=== PATIENT | male | born 1965 | race Caucasian/White ===

== ENCOUNTER 2017-06-17 10:18 | Emergency (ER) | payer MEDICAID ==
[2017-06-17 10:38] VITALS: BMI 30.4
[2017-06-17 10:56] VITALS: RESP 18; TEMP 98.7
--- NOTE | 2017-06-17 11:10 | ED PDOC ---
Arrival/HPI - General Chief Complaint: Back Pain Time Seen by Provider: 06/17/17 11:09 Historian: Patient - History of Present Illness Narrative History of Present Illness (Text): 06/17/17 11:10 This 51 yo male who denies pmh, presents to this ED c/o left flank pain x 4 days. Patient stated pain is worsen with movement, and it improves with rest. Patient denies sob, cp, dizziness, fever, n/v/d, rectal bleeding, urinary symptoms, or abnormal gait. Time/Duration: Other (see hpi) Quality: Aching Context: Home Past Medical History - Provider Review Nursing Documentation Reviewed: Yes - Infectious Disease Hx of Infectious Diseases: None - Psychiatric Hx Substance Use: No - Surgical History Hx Orthopedic Surgery: Yes Other/Comment: L FA sx - have plates on arm - Anesthesia Hx Anesthesia: Yes Hx Anesthesia Reactions: No Hx Malignant Hyperthermia: No Family/Social History - Physician Review Nursing Documentation Reviewed: Yes Family/Social History: Other (noncontributory) Smoking Status: Never Smoked Hx Alcohol Use: No Hx Substance Use: No Allergies/Home Meds Allergies/Adverse Reactions: Allergies No Known Allergies Allergy (Verified 06/17/17 10:38) Review of Systems - Review of Systems Constitutional: Normal. absent: Fatigue, Weight Change, Fevers Eyes: Normal ENT: Normal. absent: Sore Throat Respiratory: Normal. absent: SOB, Cough Cardiovascular: Normal. absent: Chest Pain, Palpitations Gastrointestinal: Abdominal Pain (left flank pain). absent: Stool Changes, Constipation, Diarrhea, Nausea, Vomiting Genitourinary Male: Normal. absent: Dysuria, Frequency Musculoskeletal: Normal. absent: Back Pain, Neck Pain Skin: Normal. absent: Rash Neurological: Normal. absent: Headache, Dizziness, Focal Weakness, Gait Changes , Speech Changes Endocrine: Normal Hemo/Lymphatic: Normal Psychiatric: Normal Physical Exam Vital Signs Temp Pulse Resp BP Pulse Ox 06/17/17 10:19 98.7 F 80 18 147/89 100 Temperature: Afebrile Blood Pressure: Normal Pulse: Regular Respiratory Rate: Normal Appearance: Positive for: Well-Appearing, Non-Toxic, Comfortable Pain Distress: None Mental Status: Positive for: Alert and Oriented X 3 - Systems Exam Head: Present: Atraumatic, Normocephalic Pupils: Present: PERRL Extroacular Muscles: Present: EOMI Conjunctiva: Present: Normal Mouth: Present: Moist Mucous Membranes Neck: Present: Normal Range of Motion Respiratory/Chest: Present: Clear to Auscultation, Good Air Exchange. No: Respiratory Distress, Accessory Muscle Use Cardiovascular: Present: Regular Rate and Rhythm, Normal S1, S2. No: Murmurs Abdomen: Present: Normal Bowel Sounds. No: Tenderness, Distention, Peritoneal Signs, Rebound, Guarding Back: Present: Normal Inspection. No: CVA Tenderness Upper Extremity: Present: Normal Inspection, Normal ROM. No: Cyanosis, Edema Lower Extremity: Present: Normal Inspection, Normal ROM. No: Edema Neurological: Present: GCS=15, CN II-XII Intact, Speech Normal Skin: Present: Warm, Dry, Normal Color. No: Rashes Psychiatric: Present: Alert, Oriented x 3, Normal Insight, Normal Concentration Medical Decision Making ED Course and Treatment: 06/17/17 12:30 Re-evaluation. Patient feels better. Discussed results and plan with patient who expresses understanding. All questions answered and there is agreement with the plan to discharge home with instructions. Patient stable for discharge. Return if symptoms persist or worsen. Patient refused blood test Re-evaluation Time: 12:36 Reassessment Condition: Re-examined, Improved - Lab Interpretations Lab Results: Lab Results 06/17/17 11:30: Urine Color Light yellow, Urine Appearance Clear, Urine pH 7.0, Ur Specific [place] 1.020, Urine Protein Negative, Urine Glucose (UA) Negative, Urine Ketones Negative, Urine Blood Negative, Urine Nitrate Negative, Urine Bilirubin Negative, Urine Urobilinogen 0.2, Ur Leukocyte Esterase Negative - RAD Interpretation Narrative RAD Interpretations (Text): 06/17/17 12:31 PROCEDURE: CT Abdomen and Pelvis without intravenous contrast HISTORY: left flank pain COMPARISON: None. TECHNIQUE: CT scan of the abdomen and pelvis was performed without administration of intravenous contrast. Oral contrast was not administered. Coronal and sagittal reformatted images were obtained. Radiation dose: Total exam DLP = 1013.22 MGy-cm. This CT exam was performed using one or more of the following dose reduction techniques: Automated exposure control, adjustment of the mA and/or kV according to patient size, and/or use of iterative reconstruction technique. FINDINGS: LOWER THORAX: The lung bases are clear. LIVER: Normal in size. No ductal dilatation. GALLBLADDER AND BILE DUCTS: There are no calcified gallstones. PANCREAS: Normal in size. No calcifications or ductal dilatation. SPLEEN: Normal in size. ADRENALS: Bilateral adrenal gland calcifications. KIDNEYS AND URETERS: Both kidneys are normal in size without nephrolithiasis or hydronephrosis. There is a 4.2 cm simple cyst in the upper pole of the left kidney. VASCULATURE: No aortic aneurysm. BOWEL: The small bowel loops are normal in caliber. There is mild colonic diverticulosis without CT evidence for acute diverticulitis. There is an apparent 2.5 cm soft tissue density in the cecum. APPENDIX: Normal appendix. PERITONEUM: No free fluid. No free air. LYMPH NODES: No enlarged lymph nodes. BLADDER: Well distended and normal in appearance. REPRODUCTIVE: Unremarkable. BONES: No acute fracture. Within normal limits for the patient's age. OTHER FINDINGS: None. IMPRESSION: 1. No evidence of nephrolithiasis, hydronephrosis or obstructive uropathy. 4.2 cm simple cyst in the upper pole of the left kidney 2. Colonic diverticulosis without CT evidence for acute diverticulitis. 3. Evaluation of the bowel is limited in the absence of oral contrast, allowing for this apparent 2.5 cm soft tissue density in the cecum could represent large polyp however mass cannot be entirely excluded. Please correlate with CT abdomen with oral contrast or colonoscopy on a nonemergent basis. Radiology Orders: 06/17/17 11:11 ABD & PELVIS W/O PO OR IV CONT [CT] Stat Disposition/Present on Arrival - Present on Arrival Any Indicators Present on Arrival: No History of DVT/PE: No History of Uncontrolled Diabetes: No Urinary Catheter: No History of Decub. Ulcer: No History Surgical Site Infection Following: None - Disposition Have Diagnosis and Disposition been Completed?: Yes Diagnosis: Musculoskeletal pain Disposition: HOME/ ROUTINE Disposition Time: 12:37 Patient Plan: Discharge Condition: GOOD Discharge Instructions (ExitCare): Muscle and Bone Pain (DC) Additional Instructions: Call Dr. Velasco private doctor for follow up visit in 1-2 days. Take medication s instructed. Return to emergency if symptoms worsen. Prescriptions: Diazepam [Valium] 2 mg PO DAILY #7 tab Famotidine [Pepcid] 40 mg PO DAILY #10 tablet Naproxen 500 mg PO BID PRN #14 tablet PRN Reason: Pain, Severe (8-10) Referrals: Caryn Velasco MD [Primary Care Provider] - Follow up with primary Forms: [employer] (Japanese)
[2017-06-17 11:50] LABS: URINE BILIRUBIN NEGATIVE (NEGATIVE); URINE BLOOD NEGATIVE (NEGATIVE); URINE GLUCOSE (UA) NEGATIVE (NEGATIVE); URINE LEUKOCYTE ESTERASE NEGATIVE Leu/uL (NEGATIVE); URINE NITRATE NEGATIVE (NEGATIVE); URINE PROTEIN NEGATIVE mg/dL (<30 mg/dL); URINE UROBILINOGEN 0.2 E.U./dL (<1 E.U./dL)
[2017-06-17 11:51] LABS: URINE APPEARANCE CLEAR (CLEAR); URINE COLOR LIGHT YELLOW (YELLOW)
--- NOTE | 2017-06-17 12:10 | CT ---
PROCEDURE: CT Abdomen and Pelvis without intravenous contrast HISTORY: left flank pain COMPARISON: None. TECHNIQUE: CT scan of the abdomen and pelvis was performed without administration of intravenous contrast. Oral contrast was not administered. Coronal and sagittal reformatted images were obtained. Radiation dose: Total exam DLP = 1013.22 MGy-cm. This CT exam was performed using one or more of the following dose reduction techniques: Automated exposure control, adjustment of the mA and/or kV according to patient size, and/or use of iterative reconstruction technique. FINDINGS: LOWER THORAX: The lung bases are clear. LIVER: Normal in size. No ductal dilatation. GALLBLADDER AND BILE DUCTS: There are no calcified gallstones. PANCREAS: Normal in size. No calcifications or ductal dilatation. SPLEEN: Normal in size. ADRENALS: Bilateral adrenal gland calcifications. KIDNEYS AND URETERS: Both kidneys are normal in size without nephrolithiasis or hydronephrosis. There is a 4.2 cm simple cyst in the upper pole of the left kidney. VASCULATURE: No aortic aneurysm. BOWEL: The small bowel loops are normal in caliber. There is mild colonic diverticulosis without CT evidence for acute diverticulitis. There is an apparent 2.5 cm soft tissue density in the cecum. APPENDIX: Normal appendix. PERITONEUM: No free fluid. No free air. LYMPH NODES: No enlarged lymph nodes. BLADDER: Well distended and normal in appearance. REPRODUCTIVE: Unremarkable. BONES: No acute fracture. Within normal limits for the patient's age. OTHER FINDINGS: None. IMPRESSION: 1. No evidence of nephrolithiasis, hydronephrosis or obstructive uropathy. 4.2 cm simple cyst in the upper pole of the left kidney 2. Colonic diverticulosis without CT evidence for acute diverticulitis. 3. Evaluation of the bowel is limited in the absence of oral contrast, allowing for this apparent 2.5 cm soft tissue density in the cecum could represent large polyp however mass cannot be entirely excluded. Please correlate with CT abdomen with oral contrast or colonoscopy on a nonemergent basis.
[2017-06-17] MEDS ORDERED: Naproxen 550 mg Tab PO STA (12:36)
[2017-06-17 12:48] VITALS: BP 148/99; PULSE 71; O2SAT 99
== END 2017-06-17 13:00 | disposition home or self-care (01) ==
LOC: ED 10:18
DX: M79.1 Myalgia (principal)

== ENCOUNTER 2017-07-05 08:39 | Day surgery (SDC) | payer MEDICAID ==
[2017-07-04 09:14] VITALS: BMI 31.0
[2017-07-05] MEDS ORDERED: Propofol 10 mg/ml Inj (20 ML) ONE ×2 (10:19→11:20)
[2017-07-05] MEDS ORDERED: Midazolam 2 MG/2 ML VIAL ONE (10:20)
[2017-07-05] MEDS ORDERED: Lidocaine 1% Inj (20ml) ONE (10:20)
[2017-07-05] MEDS ORDERED: Sodium Chloride 0.9% 1,000 ML IV SCH (12:00)
[2017-07-05 15:10] VITALS: BP 120/70; PULSE 70; RESP 18; TEMP 97.3; O2SAT 97
== END 2017-07-05 13:50 | disposition home or self-care (01) ==
LOC: ENDO 08:39
PROVIDERS: ATTEND Internal Medicine
DX: K22.70 Barrett's esophagus without dysplasia (principal); K21.0 Gastro-esophageal reflux disease with esophagitis; K29.50 Unspecified chronic gastritis without bleeding; K44.9 Diaphragmatic hernia without obstruction or gangrene; D12.3 Benign neoplasm of transverse colon; K63.5 Polyp of colon; K64.8 Other hemorrhoids
CPT/HCPCS: 43239; 45380; 45381; 45385; 88305; 88312; 88342; J2250; J2704; J3010; J7040 ×2

== ENCOUNTER 2017-09-27 06:16 | Day surgery (SDC) | payer MEDICAID ==
[2017-07-04 09:14] VITALS: BMI 31.0
[2017-09-27] MEDS ORDERED: Simethicone 40 mg/0.6 ml Liquid (30 ml) ONE (07:57)
[2017-09-27] MEDS ORDERED: Phenylephrine 10 mg/ml Inj ONE (08:04)
[2017-09-27] MEDS ORDERED: Propofol 10 mg/ml Inj (20 ML) ONE (08:04)
[2017-09-27] MEDS ORDERED: Midazolam 2 MG/2 ML VIAL ONE (08:07)
[2017-09-27] MEDS ORDERED: Sodium Chloride 0.9% 1,000 ML IV SCH (08:45)
[2017-09-27 09:08] VITALS: RESP 17
[2017-09-27 10:56] VITALS: BP 142/95; PULSE 80; TEMP 98.2; O2SAT 98
== END 2017-09-27 11:52 | disposition home or self-care (01) ==
LOC: ENDO 06:16
PROVIDERS: ATTEND Internal Medicine
DX: K21.0 Gastro-esophageal reflux disease with esophagitis (principal); K22.70 Barrett's esophagus without dysplasia; K29.70 Gastritis, unspecified, without bleeding; K44.9 Diaphragmatic hernia without obstruction or gangrene
CPT/HCPCS: 43239; 88305; 88312; J2250; J2370; J2704; J7030